=== PATIENT | female | born 1990 | race Caucasian/White ===

== ENCOUNTER → 2017-01-02 | Outpatient (CLI) | payer OTHER ==
--- NOTE | 2017-01-02 10:19 | MR ---
EXAMINATION TYPE: MR brain and iac wo/w con DATE OF EXAM: 01/02/2017 10:07 AM COMPARISON: NONE HISTORY: tinnitus TECHNIQUE: Multiplanar, multiecho imaging of the brain was obtained with and without intravenous adm inistration of 15 mL intravenous MultiHance. FINDINGS: The study is compromised by patient motion artifact. Midline structures are unremarkable. There is a normal craniocervical junction. Echoplanar diffusion imaging is unremarkable. There are normal vascular flow voids. The orbits are unremarkable. High-resolution T2-weighted imaging through the posterior fossa, exquisitely demonstrates the 7/8 ner ve complex without evidence of a CP angle mass lesion or intracanalicular acoustic schwannoma. There are no focal lesions, mass effect or midline shift. I do not see evidence of intracranial blood . Following intravenous administration of gadolinium, I do not see evidence of abnormal enhancement. Sp ecifically, I do not see evidence of an enhancing intracanalicular lesion. IMPRESSION: 1. NO EVIDENCE OF A CP ANGLE MASS LESION OR INTRACANALICULAR ACOUSTIC SCHWANNOMA. 2. NORMAL MRI OF THE BRAIN.
== END | disposition home or self-care (01) ==
LOC: RADMRIMAIN 08:58
PROVIDERS: ATTEND Nurse Practitioner Family
DX: H93.19 Tinnitus, unspecified ear (principal); H90.5 Unspecified sensorineural hearing loss
CPT/HCPCS: 70553; A9577

== ENCOUNTER → 2020-03-12 | Outpatient (CLI) | payer OTHER | END | disposition home or self-care (01) | LOC: LABWHC1 13:05 | PROVIDERS: ATTEND Psychiatry & Neurology Neurology | DX: R42 Dizziness and giddiness (principal); R51 Headache; H53.8 Other visual disturbances | CPT/HCPCS: 36415; 82040; 82042; 82784; 83916 ==

== ENCOUNTER 2020-03-15 11:38 | Inpatient (IN) | payer OTHER ==
[2020-03-15] MEDS ORDERED: ACYCLOVIR SODIUM 700 MG in SODIUM CHLORIDE 0.9% 100 ML IV ONE (13:00)
[2020-03-15] MEDS ORDERED: ACYCLOVIR 400 MG/10 ML CUP PO SCH (13:00)
--- NOTE | 2020-03-15 13:01 | XR ---
EXAMINATION TYPE: XR chest 2V DATE OF EXAM: 03/15/2020 COMPARISON: NONE TECHNIQUE: PA and lateral views submitted. HISTORY: Cough FINDINGS: The lungs are clear and there is no pneumothorax, pleural effusion, or focal pneumonia. Heart size normal. No overt failure. IMPRESSION: 1. No acute process.
[2020-03-15 13:46] LABS: Amorphous Sediment,Urine Rare /hpf; Appearance,Urine Cloudy (Clear); Bilirubin,Urine Negative (Negative); Blood,Urine Large (Negative); Color,Urine Red; Glucose,Urine (UA) Negative (Negative); Ketones,Urine Negative (Negative); Leukocyte Esterase,Urine Moderate (Negative); Nitrite,Urine Negative (Negative); Protein,Urine 1+ (Negative); RBC,Urine >182 /hpf (0-5); Specific Gravity,Urine 1.018 (1.001-1.035); Squamous Epithelial Cell,Urine 6 /hpf (0-4); Urobilinogen,Urine <2.0 mg/dL (<2.0); WBC,Urine 91 /hpf (0-5)
--- NOTE | 2020-03-15 14:15 | ED ---
General Adult HPI - General Chief complaint: Recheck/Abnormal Lab/Rx Stated complaint: sent by Time Seen by Provider: 03/15/20 12:01 Source: patient, RN notes reviewed, old records reviewed Mode of arrival: ambulatory Limitations: no limitations - History of Present Illness Initial comments: 30-year-old female patient past medical history of pseudotumor cerebri presents to ED. Patient reports that for the last 3 months or so she has been having mild waxing and waning headaches. She had a lumbar puncture done by her neurologist 2 days ago and she was called with the results today that she needed to come to the hospital because there is a viral infection. Patient reports that she has had a mild cough for the few weeks which is nonproductive. Denies any acute visual changes. Denies any headache or neck pain at this time. Denies any other complaints. Systemic: Pt denies fatigue, fever/chills, rash. Pt denies weakness, night sweats, weight loss. Neuro: Pt denies syncope or pre-syncope. HEENT: Pt denies ocular discharge or irritation, otalgia, rhinorrhea, pharyngitis or notable lymphadenopathy. Cardiopulmonary: Pt denies chest pain, SOB, heart palpitations, dyspnea on exertion. Abdominal/GI: Pt denies abdominal pain, n/v/d. : Pt denies dysuria, burning w/ urination, frequency/urgency. Denies new onset urinary or bowel incontinence. MSK: Pt denies myalgia, loss of strength or function in extremities. Neuro: Pt denies new onset weakness, paresthesias. - Related Data Allergies Allergy/AdvReac Type Severity Reaction Status Date / Time No Known Allergies Allergy Verified 03/15/20 11:45 Review of Systems ROS Statement: Those systems with pertinent positive or pertinent negative responses have been documented in the HPI. ROS Other: All systems not noted in ROS Statement are negative. Past Medical History Additional Past Medical History / Comment(s): high spinal fluid History of Any Multi-Drug Resistant Organisms: None Reported Past Surgical History: No Surgical Hx Reported Past Psychological History: Anxiety Smoking Status: Current every day smoker Past Alcohol Use History: Occasional Past Drug Use History: Marijuana General Exam - General Exam Comments Initial Comments: Constitutional: NAD, AOX3, Pt has pleasant affect. HEENT: NC/AT, trachea midline, neck supple, no lymphadenopathy. Posterior pharynx non erythematous, without exudates. External ears appear normal, without discharge. Mucous membranes moist. Eyes PERRLA, EOM intact. There is no scleral icterus. No pallor noted. Cardiopulmonary: RRR, no murmurs, rubs or gallops, no JVD noted. Lungs CTAB in anterior and posterior hammer. No peripheral edema. Abdominal exam: Abdomen soft and non-distended. Abdomen non-tender to palpation in all 4 quadrants. Bowel sounds active in LLQ. No hepatosplenomegaly. No ecchymosis Neuro: CN II-XII intact. No nuchal rigidity. No raccon eyes, no gill sign, no hemotympanum. No cervical spinal tenderness. Kernig's and Brudzinski's are negative. MSK: No posterior calf tenderness bilaterally, homans sign negative bilaterally. Posterior tibialis and radial pulse +2 bilaterally. Sensation intact in upper and lower extremities. Full active ROM in upper and lower extremities, 5/5 stregnth. Limitations: no limitations Course Vital Signs 03/15/20 03/15/20 11:40 14:10 Temperature 98.2 F Pulse Rate 90 72 Respiratory 18 16 Rate Blood Pressure 120/68 120/73 O2 Sat by Pulse 98 97 Oximetry Medical Decision Making - Medical Decision Making 30-year-old female patient past medical history of pseudotumor cerebri presents to ED. Patient reports that for the last 3 months or so she has been having mild waxing and waning headaches. She had a lumbar puncture done by her neurologist 2 days ago and she was called with the results today that she needed to come to the hospital because there is a viral infection. Patient reports that she has had a mild cough for the few weeks which is nonproductive. Denies any acute visual changes. Denies any headache or neck pain at this time. Denies any other complaints. Patient vital signs are stable, afebrile. Physical exam did not display acute pathology. Area of LP site was examined there no skin changes. Patient neurologic exam is intact. Meningeal signs are negative. Laboratory investigations were obtained. Leukocytosis of 16 is noted. UA does display blood as patient is on her menses. Chest x-rays but no acute process. 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 Patient was initiated on acyclovir 10 mg/kg 3 times a day. Case was discussed in depth with Dr. Marie discussed case with on-call neurology. We'll be admitted for further evaluation and ID consult. - Lab Data Result diagrams: 03/15/20 13:50 03/15/20 13:50 Lab Results 03/15/20 03/15/20 03/15/20 Range/Units 13:00 13:00 13:50 WBC 16.6 H (3.8-10.6) k/uL RBC 4.65 (3.80-5.40) m/uL Hgb 13.5 (11.4-16.0) gm/dL Hct 42.6 (34.0-46.0) % MCV 91.6 (80.0-100.0) fL MCH 28.9 (25.0-35.0) pg MCHC 31.6 (31.0-37.0) g/dL RDW 13.1 (11.5-15.5) % Plt Count 404 (150-450) k/uL Neutrophils % 73 % Lymphocytes % 19 % Monocytes % 5 % Eosinophils % 2 % Basophils % 0 % Neutrophils # 12.0 H (1.3-7.7) k/uL Lymphocytes # 3.1 (1.0-4.8) k/uL Monocytes # 0.8 (0-1.0) k/uL Eosinophils # 0.3 (0-0.7) k/uL Basophils # 0.1 (0-0.2) k/uL Sodium (137-145) mmol/L Potassium (3.5-5.1) mmol/L Chloride (98-107) mmol/L Carbon Dioxide (22-30) mmol/L Anion Gap mmol/L BUN (7-17) mg/dL Creatinine (0.52-1.04) mg/dL Est GFR (CKD-EPI)AfAm (>60 ml/min/1.73 sqM) Est GFR (CKD-EPI)NonAf (>60 ml/min/1.73 sqM) Glucose (74-99) mg/dL Calcium (8.4-10.2) mg/dL Total Bilirubin (0.2-1.3) mg/dL AST (14-36) U/L ALT (4-34) U/L Alkaline Phosphatase (38-126) U/L Total Protein (6.3-8.2) g/dL Albumin (3.5-5.0) g/dL Urine Color Red Urine Appearance Cloudy H (Clear) Urine pH 7.0 (5.0-8.0) Ur Specific [place] 1.018 (1.001-1.035) Urine Protein 1+ H (Negative) Urine Glucose (UA) Negative (Negative) Urine Ketones Negative (Negative) Urine Blood Large H (Negative) Urine Nitrite Negative (Negative) Urine Bilirubin Negative (Negative) Urine Urobilinogen <2.0 (<2.0) mg/dL Ur Leukocyte Esterase Moderate H (Negative) Urine RBC >182 H (0-5) /hpf Urine WBC 91 H (0-5) /hpf Urine WBC Clumps Moderate H (None) /hpf Ur Squamous Epith Cells 6 H (0-4) /hpf Amorphous Sediment Rare H (None) /hpf Urine HCG, Qual Not Detected (Not Detectd) 03/15/20 Range/Units 13:50 WBC (3.8-10.6) k/uL RBC (3.80-5.40) m/uL Hgb (11.4-16.0) gm/dL Hct (34.0-46.0) % MCV (80.0-100.0) fL MCH (25.0-35.0) pg MCHC (31.0-37.0) g/dL RDW (11.5-15.5) % Plt Count (150-450) k/uL Neutrophils % % Lymphocytes % % Monocytes % % Eosinophils % % Basophils % % Neutrophils # (1.3-7.7) k/uL Lymphocytes # (1.0-4.8) k/uL Monocytes # (0-1.0) k/uL Eosinophils # (0-0.7) k/uL Basophils # (0-0.2) k/uL Sodium 137 (137-145) mmol/L Potassium 4.2 (3.5-5.1) mmol/L Chloride 114 H (98-107) mmol/L Carbon Dioxide 15 L (22-30) mmol/L Anion Gap 8 mmol/L BUN 9 (7-17) mg/dL Creatinine 0.60 (0.52-1.04) mg/dL Est GFR (CKD-EPI)AfAm >90 (>60 ml/min/1.73 sqM) Est GFR (CKD-EPI)NonAf >90 (>60 ml/min/1.73 sqM) Glucose 94 (74-99) mg/dL Calcium 9.0 (8.4-10.2) mg/dL Total Bilirubin 0.6 (0.2-1.3) mg/dL AST 18 (14-36) U/L ALT 10 (4-34) U/L Alkaline Phosphatase 71 (38-126) U/L Total Protein 6.9 (6.3-8.2) g/dL Albumin 4.0 (3.5-5.0) g/dL Urine Color Urine Appearance (Clear) Urine pH (5.0-8.0) Ur Specific [place] (1.001-1.035) Urine Protein (Negative) Urine Glucose (UA) (Negative) Urine Ketones (Negative) Urine Blood (Negative) Urine Nitrite (Negative) Urine Bilirubin (Negative) Urine Urobilinogen (<2.0) mg/dL Ur Leukocyte Esterase (Negative) Urine RBC (0-5) /hpf Urine WBC (0-5) /hpf Urine WBC Clumps (None) /hpf Ur Squamous Epith Cells (0-4) /hpf Amorphous Sediment (None) /hpf Urine HCG, Qual (Not Detectd) Disposition Clinical Impression: Viral meningitis Disposition: ADMITTED IP TO THIS HOSP Condition: Serious Is patient prescribed a controlled substance at d/c from ED?: No Referrals: Ken Freire DO [Primary Care Provider] - 1-2 days
[2020-03-15 14:29] LABS: Basophils # (A) 0.1 k/uL (0-0.2); Basophils % (A) 0 %; Eosinophils # (A) 0.3 k/uL (0-0.7); Eosinophils % (A) 2 %; HCT 42.6 % (34.0-46.0); HGB 13.5 gm/dL (11.4-16.0); Lymphocytes # (A) 3.1 k/uL (1.0-4.8); Lymphocytes % (A) 19 %; MCH 28.9 pg (25.0-35.0); MCHC 31.6 g/dL (31.0-37.0); MCV 91.6 fL (80.0-100.0); Mean Platelet Volume 7.2; Monocytes # (A) 0.8 k/uL (0-1.0); Monocytes % (A) 5 %; Neutrophils % (A) 73 %; Platelet Count 404 k/uL (150-450); RBC 4.65 m/uL (3.80-5.40); RDW 13.1 % (11.5-15.5); WBC 16.6 k/uL (3.8-10.6)
[2020-03-15 14:48] LABS: ALT 10 U/L (4-34); AST 18 U/L (14-36); African American GFR (CKD) >90 (>60 ml/min/1.73 sqM); Alkaline Phosphatase 71 U/L (38-126); Anion Gap 8 mmol/L; Blood Urea Nitrogen 9 mg/dL (7-17); Carbon Dioxide 15 mmol/L (22-30); Chloride 114 mmol/L (98-107); Glucose 94 mg/dL (74-99); Non-African American GFR(CKD) >90 (>60 ml/min/1.73 sqM); Potassium 4.2 mmol/L (3.5-5.1); Sodium 137 mmol/L (137-145); Total Bilirubin 0.6 mg/dL (0.2-1.3); Total Protein 6.9 g/dL (6.3-8.2)
[2020-03-15] MEDS ORDERED: NALOXONE 0.4 MG/ML 1 ML VIAL IV PRN (15:01)
[2020-03-15] MEDS: ACETAMINOPHEN TAB 325 MG TAB PO PRN (20:26)
[2020-03-15] MEDS: guaiFENesin SYRUP 100MG/5ML 200 MG/10 ML CUP PO PRN (21:09)
[2020-03-15] MEDS: ACYCLOVIR SODIUM 700 MG in SODIUM CHLORIDE 0.9% 100 ML IV SCH (21:59)
[2020-03-15] MEDS: ACETAZOLAMIDE 500 MG PO SCH (22:57)
[2020-03-15] MEDS: ALPRAZolam 0.25 MG TAB PO PRN (22:58)
--- NOTE | 2020-03-15 23:27 | P.CNNES ---
History of Present Illness Consult date: 03/15/20 Requesting physician: Nilesh Key Reason for Consult: Viral meningitis History of Present Illness: Patient is a 30-year-old female who is otherwise healthy, admitted to the hospital for abnormal spinal fluid results with positive HSV PCR. Patient states that for the last 4 years she has been having tinnitus involving her right ear. It is more like a whooshing sound with some pressure pain. She has ignored the symptoms. Patient saw an grocery cashier as a routine follow-up in November 2019, who found evidence of pressure behind her optic nerves. He felt it was idiopathic intracranial hypertension. Recommended patient to see a neurologist. Patient states that because of the pandemic, she was not able to see a neurologist for a 3 months. Patient finally saw Dr Montalvo last week, and underwent lumbar puncture on 03/12/2020, in which her opening pressure was 33 cm. Patient was started on Diamox. Patient states that since then her tinnitus in the right ear has improved. Her spinal fluid showed 0 WBC, 1 RBC, normal protein 44 (12-60) and normal synthesis rate and IgG index. Oligoclonal bands are negative. Patient's HSV 1 PCR came back positive. Patient was referred to ER for further evaluation. Patient has been seen by infectious disease, who is recommending repeat lumbar puncture, as there is no evidence of infection except for elevated intracranial pressure. Patient has been started on acyclovir 700 mg IV every 8 hours empirically, pending results of spinal fluid. Patient state s that she does get headaches sometimes when she has not drink enough fluids or after she takes a hot shower, she lays down and sleep it off. Otherwise she does not have chronic headaches except the symptoms in the right ear as mentioned. Patient states that overall she has not been feeling well for quite some time but for last 1 week has been feeling some flulike symptoms. Patient's blood test shows WBC 16.6, hemoglobin 13.5, platelets 404. Neutrophils are elevated at 12.0. Electrolytes are normal except chloride 114. Liver functions normal. Renal functions normal. CRP is 27.6. UA shows cloudy urine, 1+ protein. Patient had an MRI of the brain performed on 12/13/2019, and MRA of the brain performed 03/11/2020 at her neurologist office. Review of Systems As mentioned above in detail. All other review of systems completely unremarkable. Denies any fever or chills. Past Medical History Additional Past Medical History / Comment(s): high spinal fluid. SINUSITIS. BORN PREMATURE 3 MONTHS History of Any Multi-Drug Resistant Organisms: None Reported Past Surgical History: No Surgical Hx Reported Additional Past Surgical History / Comment(s): LUMBAR PUNCTURE TEUSDAY Past Anesthesia/Blood Transfusion Reactions: No Reported Reaction Past Psychological History: Anxiety Smoking Status: Current every day smoker Past Alcohol Use History: Occasional Past Drug Use History: Marijuana - Past Family History Mother History Unknown: Yes Medications and Allergies Home Medications Medication Instructions Recorded Confirmed Type ALPRAZolam [Xanax] 0.25 mg PO DAILY PRN 03/15/20 03/15/20 History Phenylephrine/Dm/Acetaminop/GG 15 ml PO DAILY PRN 03/15/20 03/15/20 History [Vicks Dayquil Severe Cold-Flu] acetaZOLAMIDE [acetaZOLAMIDE ER] 500 mg PO BID 03/15/20 03/15/20 History Allergies Allergy/AdvReac Type Severity Reaction Status Date / Time No Known Allergies Allergy Verified 03/15/20 15:43 Physical Examination - Vital Signs Vital Signs: Vital Signs Temp Pulse Pulse Resp BP BP BP 03/15/20 19:37 99.3 F 85 18 132/59 03/15/20 15:45 98.3 F 69 16 122/82 03/15/20 15:29 18 03/15/20 15:25 97.0 F L 18 03/15/20 14:10 72 16 120/73 03/15/20 11:40 98.2 F 90 18 120/68 Pulse Ox 03/15/20 19:37 98 03/15/20 15:45 97 03/15/20 15:29 03/15/20 15:25 03/15/20 14:10 97 03/15/20 11:40 98 Intake and Output 03/15/20 03/15/20 03/16/20 14:59 22:59 06:59 Intake Total 500 Balance 500 Intake: Oral 500 Other: # Voids 2 Weight 69.4 kg 69.4 kg On examination patient is a young female, in no acute distress. Patient is alert awake oriented to time place and person. Speech and language functions are normal. Attention concentration fund of knowledge is adequate. On cranial exam showed pupils are round and reactive to light, visual hammer are full, extraocular muscles are intact. Face is symmetric, tongue protrudes the midline. Palatal elevation and sensation normal. Hearing and shoulder shrug normal. On muscle strength testing there is no pronator drift and the strength is normal in arms and legs distally and proximally. Reflexes are plus and plantars downgoing. Sensory touch is equal. No ataxia for pclhya-wr-nrsy te sting. Tone and bulk of muscles normal. Gait normal. No bruit or murmur, peripheral pulses present. Results - Laboratory Findings CBC and BMP: 03/15/20 13:50 03/15/20 13:50 Abnormal Lab Findings: Abnormal Labs 03/15/20 03/15/20 03/15/20 13:00 13:50 13:50 WBC 16.6 H Neutrophils # 12.0 H Chloride 114 H Carbon Dioxide 15 L C-Reactive Protein Urine Appearance Cloudy H Urine Protein 1+ H Urine Blood Large H Ur Leukocyte Esterase Moderate H Urine RBC >182 H Urine WBC 91 H Urine WBC Clumps Moderate H Ur Squamous Epith Cells 6 H Amorphous Sediment Rare H 03/15/20 13:50 WBC Neutrophils # Chloride Carbon Dioxide C-Reactive Protein 27.6 H Urine Appearance Urine Protein Urine Blood Ur Leukocyte Esterase Urine RBC Urine WBC Urine WBC Clumps Ur Squamous Epith Cells Amorphous Sediment Assessment and Plan Assessment: * 30-year-old female who had lumbar puncture performed for incidental finding of papilledema, found to have positive HSV-1 PCR in the spinal fluid. The opening pressure was elevated 33 cm. There were no white cells, or red cells, and total CSF proteins also normal. 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 Patient claims she has been feeling some for lack symptoms in the past 1 week. Plan: * Patient has been seen by infectious disease. Patient has been started on IV acyclovir. * Patient will undergo repeat lumbar puncture to evaluate for spinal fluid proteins, cell count, glucose and HSV-1, HSV 2 PCR. * Neurology service not available on the weekend. Dr. Moe will start neurology service on Wednesday. * Continue Diamox for now.
[2020-03-16 00:53] LABS: Glucose,CSF 56 mg/dL (40-70); Total Protein,CSF 43 mg/dL (12-60)
[2020-03-16 01:36] LABS: Appearance,CSF Clear; CSF Tube Number 4; Nucleated Cells, CSF 2 u/L (0-5); Red Blood Cell,CSF 1 u/L (0-10)
[2020-03-16 02:16] LABS: HSV I IgG Interp NEGATIVE (NEGATIVE); HSV II IgG Interp NEGATIVE (NEGATIVE)
[2020-03-16] MEDS: ACYCLOVIR SODIUM 700 MG in SODIUM CHLORIDE 0.9% 100 ML IV SCH ×2 (05:44→15:33)
[2020-03-16] MEDS: guaiFENesin SYRUP 100MG/5ML 200 MG/10 ML CUP PO PRN ×3 (05:45→18:47)
[2020-03-16] MEDS: ACETAMINOPHEN TAB 325 MG TAB PO PRN ×4 (05:45→23:02)
[2020-03-16 06:40] LABS: Basophils % (A) 0 %; Eosinophils # (A) 0.3 k/uL (0-0.7); Eosinophils % (A) 3 %; HCT 40.8 % (34.0-46.0); HGB 13.3 gm/dL (11.4-16.0); Lymphocytes # (A) 2.9 k/uL (1.0-4.8); Lymphocytes % (A) 29 %; MCH 30.4 pg (25.0-35.0); MCHC 32.6 g/dL (31.0-37.0); MCV 93.1 fL (80.0-100.0); Mean Platelet Volume 7.1; Monocytes # (A) 0.5 k/uL (0-1.0); Monocytes % (A) 5 %; Neutrophils # (A) 6.1 k/uL (1.3-7.7); Neutrophils % (A) 61 %; Platelet Count 380 k/uL (150-450); RBC 4.38 m/uL (3.80-5.40); RDW 13.4 % (11.5-15.5)
--- NOTE | 2020-03-16 06:41 | HP ---
HISTORY AND PHYSICAL CHIEF COMPLAINTS: Abnormal lumbar puncture and headaches and pseudotumor cerebri. HISTORY OF PRESENT ILLNESS: This 30-year-old woman with a past medical history of multiple medical issues including tinnitus, history of eye difficulties, possibly pseudotumor cerebri, was being followed by Dr. Freire in the outpatient setting. The patient is not feeling well over the past several days. Patient had headache, weakness, and the patient also had a lumbar puncture done by Dr. 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 Otherwise, CSF showed normal albumin and normal cells. The patient was also seen by the neurologist, Dr. Wilhelm who recommended repeat lumbar puncture and continued monitoring. Diamox was initiated. The patient had an incidental finding of papilledema as well. There is no history of fever, rigors. No headache, loss of consciousness, seizures. PAST MEDICAL HISTORY: Pseudotumor cerebri, history of papilledema, history of premature , history of anxiety. MEDICATIONS PRIOR TO ADMISSION: Include Vicks DayQuil, Diamox 500 mg p.o. b.i.d., Xanax 0.5 daily p.r.n. ALLERGIES: None. FAMILY HISTORY: No history of heart attacks or strokes in the family. SOCIAL HISTORY: History of smoking, history of THC. REVIEW OF SYSTEMS: ENT As mentioned earlier. CARDIOVASCULAR No angina or palpitations. RESPIRATORY No cough, no hemoptysis. GI No nausea, vomiting, or diarrhea. No dysuria or hematuria. NERVOUS No numbness or weakness. ALLERGY/IMMUNOLOGY No asthma or hayfever. MUSCULOSKELETAL As mentioned earlier. HEMATOLOGY/ONCOLOGY Negative. ENDOCRINE No history of diabetes or hypothyroidism. CONSTITUTIONAL As mentioned earlier. DERMATOLOGY As mentioned earlier. RHEUMATOLOGY As mentioned earlier. PSYCHIATRY As mentioned earlier. PHYSICAL EXAMINATION: Alert and oriented x3. Pulse is 85, blood pressure 130/59, respiration 18, temperature 99.3, pulse ox 98% on room air. HEENT: Conjunctivae normal. Oral mucosa moist. NECK: No jugular venous distention. No lymph node enlargement. CARDIOVASCULAR: S1, S2. RESPIRATORY: Diminished breath sounds at the bases. No rhonchi, no crackles. ABDOMEN: Soft, nontender. No mass palpable. LEGS: No edema, no swelling. NERVOUS SYSTEM: Higher functions mentioned earlier. Moves all four limbs. No focal deficits. LYMPHATICS: No lymph node in neck or axilla. SKIN: No rash. JOINTS: No active deforming arthropathy. LABS: At this time shows the HSV 1 DNA PCR is positive in the previous lumbar puncture done on 03/12. Other labs are WBC 16.2, hemoglobin 13.4, sodium 137, potassium 4.2, CO2 is 15. UA had RBCs. ASSESSMENT: 1. Headache and weakness for evaluation, rule out HSV 1 encephalitis. 2. History of pseudotumor cerebri. 3. History of papilledema. 4. Increased WBC. 5. Decreased CO2. 6. History of sinusitis. 7. History of premature . 8. History of anxiety. 9. Continued ongoing nicotine dependence. 10.History of THC. RECOMMENDATIONS AND DISCUSSION: In this 30-year-old woman who presented with multiple complex medical issues, I would recommend to continue current management and symptomatic treatment. Otherwise, continue with Diamox. Repeat lumbar puncture and studies. Infectious disease evaluation. Otherwise prognosis guarded because of multiple complex medical issues. Further recommendations to follow. The CSF values noted and neurology evaluation appreciated. Guarded prognosis. MMODL / IJN: [id number] /
--- NOTE | 2020-03-16 07:21 | P.PCN ---
Date of Procedure: 03/16/20 Procedure(s) Performed: Preoperative diagnosis: Viral meningitis Post operative diagnoses: Viral meningitis Procedure= lumbar puncture Anesthesia local infiltration with lidocaine 1% 2 mL. Condition: stable Complication: none. Description of the procedure procedure risk and benefits discussed with the patient , consent signed. Patient and the procedure area placed in sitting position , back prepped with chlorhexidine 3 times been local infiltration of the skin and subcutaneous tissue with lidocaine 1% 2 mL for skin and subcu interstitial infiltrations at L4 5 levels then 22-gauge Quincke-type needle advanced slowly at L4- 5 interlaminar space there was positive cerebrospinal fluid which was clear, no heme, no paresthesia ,total of 8 ML of clear cerebrospinal fluid collected in 4 different tubes 2 mL in each, then the needle removed and a Band-Aid applied and patient tolerated the procedure well without any complications.
[2020-03-16 07:34] LABS: African American GFR (CKD) >90 (>60 ml/min/1.73 sqM); Anion Gap 5 mmol/L; Blood Urea Nitrogen 8 mg/dL (7-17); Calcium 8.6 mg/dL (8.4-10.2); Carbon Dioxide 15 mmol/L (22-30); Chloride 117 mmol/L (98-107); Glucose 100 mg/dL (74-99); Non-African American GFR(CKD) >90 (>60 ml/min/1.73 sqM); Sodium 137 mmol/L (137-145)
--- NOTE | 2020-03-16 09:50 | P.CONS ---
History of Present Illness - Reason for Consult Consult date: 03/15/20 abnormal CSF Requesting physician: Laury Cardona - Chief Complaint headache and was told to go to ER for abnormal CSF - History of Present Illness Patient is a 30-year-old female with a past medical he significant for pseudotumor cerebri in this patient who did have work-up done in the outpatient setting including a lumbar puncture the CSF finding came back positive for HSV DNA by PCR subsequently the patient has been sent to the [facility] ER for further management the patient has been complaining of some headache more of a dull aching pain but not persistent patient mention she did have occasional low- grade fever ranging between 99 200 F patient denies having photophobia no nausea no vomiting no chest pain shortness of breath or cough no abdominal pain or any diarrhea patient on arrival to the ER has been afebrile he did have elevated white count 16,000 though urine has been positive however lipid denies significant urinary symptoms of any burning or frequency this patient care has been discussed in detail with me by the ER physician in view of the positive finding of HSV DNA by PCR in the CSF which is very sensitive for HSV encephaliti s patient has been admitted to hospital however her other CSF biochemical marker are not pointing towards inflammation as we will have to repeat the CSF to confirm the findings. Review of Systems Positive point has been mentioned in HPI rest of the systems are negative Past Medical History Additional Past Medical History / Comment(s): high spinal fluid. SINUSITIS. BORN PREMATURE 3 MONTHS History of Any Multi-Drug Resistant Organisms: None Reported Past Surgical History: No Surgical Hx Reported Additional Past Surgical History / Comment(s): LUMBAR PUNCTURE TEUSDAY Past Anesthesia/Blood Transfusion Reactions: No Reported Reaction Past Psychological History: Anxiety Smoking Status: Current every day smoker Past Alcohol Use History: Occasional Past Drug Use History: Marijuana - Past Family History Mother History Unknown: Yes Medications and Allergies Home Medications Medication Instructions Recorded Confirmed Type ALPRAZolam [Xanax] 0.25 mg PO DAILY PRN 03/15/20 03/15/20 History Phenylephrine/Dm/Acetaminop/GG 15 ml PO DAILY PRN 03/15/20 03/15/20 History [Vicks Dayquil Severe Cold-Flu] acetaZOLAMIDE [acetaZOLAMIDE ER] 500 mg PO BID 03/15/20 03/15/20 History Allergies Allergy/AdvReac Type Severity Reaction Status Date / Time No Known Allergies Allergy Verified 03/15/20 15:43 Physical Exam Vitals: Vital Signs Temp Pulse Pulse Resp BP BP BP 03/15/20 19:37 99.3 F 85 18 132/59 03/15/20 15:45 98.3 F 69 16 122/82 03/15/20 15:29 18 03/15/20 15:25 97.0 F L 18 03/15/20 14:10 72 16 120/73 03/15/20 11:40 98.2 F 90 18 120/68 Pulse Ox 03/15/20 19:37 98 03/15/20 15:45 97 03/15/20 15:29 03/15/20 15:25 03/15/20 14:10 97 03/15/20 11:40 98 Intake and Output 03/15/20 03/15/20 03/16/20 14:59 22:59 06:59 Intake Total 500 Balance 500 Intake: Oral 500 Other: # Voids 2 Weight 69.4 kg 69.4 kg GENERAL DESCRIPTION: Middle-aged female lying in bed, no distress. No tachypnea or accessory muscle of respiration use. HEENT: Shows Pallor , no scleral icterus. Oral mucous membrane is dry. NECK: Trachea central, no thyromegaly. LUNGS: Unlabored breathing. Clear to auscultation anteriorly. No wheeze or crackle. HEART: S1, S2, regular rate and rhythm. ABDOMEN: Soft, no tenderness , guarding or rigidity EXTREMITIES: No edema of feet. SKIN: No rash, no masses palpable. NEUROLOGICAL: The patient is awake, alert, oriented x3, mood and affect normal Results CBC & Chem 7: 03/16/20 06:28 03/16/20 06:28 Labs: Abnormal Lab Results - Last 24 Hours (Table) 03/15/20 03/15/20 03/15/20 Range/Units 13:00 13:50 13:50 WBC 16.6 H (3.8-10.6) k/uL Neutrophils # 12.0 H (1.3-7.7) k/uL Chloride 114 H (98-107) mmol/L Carbon Dioxide 15 L (22-30) mmol/L C-Reactive Protein (<10.0) mg/L Urine Appearance Cloudy H (Clear) Urine Protein 1+ H (Negative) Urine Blood Large H (Negative) Ur Leukocyte Esterase Moderate H (Negative) Urine RBC >182 H (0-5) /hpf Urine WBC 91 H (0-5) /hpf Urine WBC Clumps Moderate H (None) /hpf Ur Squamous Epith Cells 6 H (0-4) /hpf Amorphous Sediment Rare H (None) /hpf // Range/Units 13:50 WBC (3.8-10.6) k/uL Neutrophils # (1.3-7.7) k/uL Chloride (98-107) mmol/L Carbon Dioxide (22-30) mmol/L C-Reactive Protein 27.6 H (<10.0) mg/L Urine Appearance (Clear) Urine Protein (Negative) Urine Blood (Negative) Ur Leukocyte Esterase (Negative) Urine RBC (0-5) /hpf Urine WBC (0-5) /hpf Urine WBC Clumps (None) /hpf Ur Squamous Epith Cells (0-4) /hpf Amorphous Sediment (None) /hpf Assessment and Plan Assessment: 1-patient with abnormal CSF findings with HSV DNA by PCR positive however the patient do not have significant leukocytosis in the CSF and protein is normal these 2 findings would go against CSF inflammation however at the same time HSV DNA by PCR resulted sensitivities for HSV encephalitis cannot disregarded finding either. 2-positive UA but no symptom likely asymptomatic bacteriuria (1) PCR DNA positive for HSV1 Current Visit: Yes Status: Acute Code(s): Z11.59 - ENCOUNTER FOR SCREENING FOR OTHER VIRAL DISEASES; B00.9 - HERPESVIRAL INFECTION, UNSPECIFIED SNOMED Code(s): 895069866 Plan: 1-consult anesthesia for LP fluid should be sent for cell count differential glucose protein and HSV DNA by PCR 2-acyclovir 10 mg/kg every 8hr while waiting for the repeat CSF 3-we will also check HSV 1 and 2 serology We will follow on clinical condition and cultures to further adjust medication if needed Thank you for this consultation we will follow the patient along with you Time with Patient: Greater than 30
[2020-03-16] MEDS: NICOTINE 21MG/24HR PATCH TRANSDERM SCH (10:45)
[2020-03-16] MEDS: ACETAZOLAMIDE 500 MG PO SCH ×2 (10:46→20:32)
[2020-03-16] MEDS: ALPRAZolam 0.25 MG TAB PO PRN (17:04)
--- NOTE | 2020-03-16 17:17 | PN ---
PROGRESS NOTE DATE OF SERVICE: 03/16/2020 This 30-year-old woman is admitted with abnormal lumbar puncture and the antibody in the CSF, was started on acyclovir. Patient was developing blister-like lesions. Patient had features of UTI also. Infectious Disease following the patient closely. Repeat lumbar puncture has been done at this time. The patient also had pseudotumor cerebri as well. The patient is followed by Neurology, Dr. Cardona also. The patient developed blister-like lesions in the injection sites. PAST MEDICAL HISTORY: Reviewed. REVIEW OF SYSTEMS: CARDIOVASCULAR: No angina. RESPIRATION as mentioned earlier. GI: As mentioned earlier. Nervous system: As mentioned earlier. CURRENT MEDICATIONS: Reviewed and include: 1. Tylenol p.r.n. 2. Acyclovir. 3. Xanax. 4. Robitussin. 5. Narcan. 6. Habitrol. PHYSICAL EXAM: Patient is alert, oriented x3. Pulse 72. Blood pressure 105/60, respiration 20, temperature 98.2, pulse ox 98% on room air. HEENT is conjunctivae normal. NECK: No JVD. CARDIOVASCULAR: S1, S2 muffled. RESPIRATIONS: Breath sounds diminished in the bases. Scattered rhonchi and crackles. ABDOMEN: Soft, nontender. No mass palpable. LEGS are no edema. No focal deficits. LABS: WBC 10, sodium 137, potassium 4, CO2 is 15. ASSESSMENT: 1. Headache and weakness for evaluation, rule out HSV 1 encephalitis. 2. Pseudotumor cerebri, possibly. 3. History of papilledema. 4. Decreased CO2 with possible metabolic acidosis caused by Diamox. 5. Increased WBC. 6. History of sinusitis. 7. History of premature . 8. History of anxiety. 9. Continued ongoing nicotine dependence. 10.History of THC. 11.Urinary tract infection. RECOMMENDATIONS AND DISCUSSION: This 30-year-old woman who presented with multiple complex medical issues, we will monitor the patient closely, continue the current medications, and symptomatic treatment. The patient probably developed allergy to Acyclovir . I recommend to hold the Acyclovir at this time and await the spinal fluid reports. Otherwise also recommend urine culture and also initiate Rocephin for the presumed UTI. Otherwise, prognosis guarded because of the multiple complex medical issues. White count is improving. Further recommendations to follow. MMODL / IJN: [id number] / CHECO
--- NOTE | 2020-03-17 00:36 | PN ---
PROGRESS NOTE DATE OF SERVICE: 03/16/2020 REASON FOR FOLLOWUP: Abnormal CSF with HSV DNA positive. INTERVAL HISTORY: The patient is currently afebrile. The patient denies having any headache. No chest pain or shortness of breath. She did have some cough but no sputum. No vomiting or any diarrhea. PHYSICAL EXAMINATION: Blood pressure 115/72 with a pulse of 90, temperature 98.1, she is 99% on room air. General description is a middle-aged female lying in bed in no distress. Respiratory system: Unlabored breathing, clear to auscultation anteriorly. Heart S1, S2. Regular rate and rhythm. Abdomen soft, no tenderness. LABS: Hemoglobin 13.8, white count 14646, BUN of 8, creatinine 0.55. The patient did have CSF this morning which shows only 2 nucleated cell glucose and protein normal. The patient did have HSV 1 and 2 IgG negative. DIAGNOSTIC IMPRESSION AND PLAN: Patient with outpatient LP with CSF did shows HSV DNA positive with question of contamination or lab error as the patient clinically not behaving as herpes encephalitis, no fever no white count. Repeat herpes is clear and the patient to have negative serology for HSV 1 and 2. We will wait for the HSV DNA on this CSF today. If negative recommend discontinue the acyclovir. Continue supportive care. MMODL / IJN: [id number] /
[2020-03-17] MEDS: guaiFENesin SYRUP 100MG/5ML 200 MG/10 ML CUP PO PRN ×4 (03:23→21:39)
[2020-03-17] MEDS: ACETAMINOPHEN TAB 325 MG TAB PO PRN ×3 (07:09→21:01)
[2020-03-17] MEDS: ACETAZOLAMIDE 500 MG PO SCH ×3 (07:17→20:24)
[2020-03-17] MEDS: ALPRAZolam 0.25 MG TAB PO PRN ×2 (07:38→13:55)
[2020-03-17 07:44] LABS: Basophils % (A) 0 %; Eosinophils # (A) 0.3 k/uL (0-0.7); Eosinophils % (A) 2 %; HCT 39.9 % (34.0-46.0); HGB 13.5 gm/dL (11.4-16.0); Lymphocytes # (A) 2.6 k/uL (1.0-4.8); Lymphocytes % (A) 16 %; MCHC 33.8 g/dL (31.0-37.0); MCV 91.8 fL (80.0-100.0); Monocytes # (A) 0.8 k/uL (0-1.0); Monocytes % (A) 5 %; Neutrophils # (A) 12.1 k/uL (1.3-7.7); Neutrophils % (A) 75 %; Platelet Count 412 k/uL (150-450); RBC 4.35 m/uL (3.80-5.40); RDW 13.2 % (11.5-15.5); WBC 16.1 k/uL (3.8-10.6)
[2020-03-17 07:52] LABS: African American GFR (CKD) >90 (>60 ml/min/1.73 sqM); Anion Gap 9 mmol/L; Blood Urea Nitrogen 9 mg/dL (7-17); Calcium 9.1 mg/dL (8.4-10.2); Carbon Dioxide 14 mmol/L (22-30); Chloride 115 mmol/L (98-107); Glucose 106 mg/dL (74-99); Non-African American GFR(CKD) >90 (>60 ml/min/1.73 sqM); Potassium 3.9 mmol/L (3.5-5.1); Sodium 138 mmol/L (137-145)
[2020-03-17] MEDS: NICOTINE 21MG/24HR PATCH TRANSDERM SCH (08:08)
[2020-03-17 14:03] LABS: ABG Base Excess -13.1 mmol/L; ABG HCO3 13 mmol/L (21-25); ABG Oxygen Saturation 97.4 % (94-97); ABG PCO2 27 mmHg (35-45); ABG PH 7.31 (7.35-7.45); ABG PO2 97 mmHg (83-108); ABG TCO2 14 mmol/L (19-24); Allen Test Performed? Yes
--- NOTE | 2020-03-17 14:10 | XR ---
EXAMINATION TYPE: XR chest 2V DATE OF EXAM ORDERED: 03/17/2020 HISTORY: cough. REFERENCE: None. FINDINGS: The lungs are clear. Pleural spaces are clear. Heart size is normal. IMPRESSION: NORMAL CHEST.
[2020-03-17] MEDS: BENZOCAINE/MENTHOL LOZENG 1 EACH LOZENGE MUCOUS MEM SCH ×3 (15:13→20:55)
--- NOTE | 2020-03-17 15:44 | P.NPCON ---
History of Present Illness - Reason for Consult Consult date: 03/17/20 metabolic acidosis - Chief Complaint Headache, pseudotumor cerebri - History of Present Illness This is a 30-year-old female seen in consultation because of non-gap acidosis secondary to Diamox that was prescribed to her about 3 days ago for her pseudotumor cerebri with peripheral edema and tinnitus in the right ear rather than headache. The ear symptoms have been going on for 4 years supposedly. She was seen by underwear finisher and subsequently referred to neurologist more recently and has had an MRI and MRA done which supposedly were normal. Subsequently had LP done which showed high CSF pressures of 33 cm opening pressure on 03/12/2020. Her spinal fluid showed 0 WBCs and RBCs protein was 44 normal being 12-60 She was started on Diamox 500 twice a day. She is complaining of cough for several days they have predated the Diamox but she is not sure. After being admitted to the hospital because of the HSV being positive, She was started on acyclovir here but because of rash and blebs it has been discontinued. Her repeat CSF has been obtained opening pressure is not available Again the RBCs is 1 WBCs 2 and total protein is 43 and glucose is 56 Past Medical History Additional Past Medical History / Comment(s): high spinal fluid. SINUSITIS. BORN PREMATURE 3 MONTHS History of Any Multi-Drug Resistant Organisms: None Reported Past Surgical History: No Surgical Hx Reported Additional Past Surgical History / Comment(s): LUMBAR PUNCTURE TEUSDAY Past Anesthesia/Blood Transfusion Reactions: No Reported Reaction Past Psychological History: Anxiety Smoking Status: Current every day smoker Past Alcohol Use History: Occasional Past Drug Use History: Marijuana - Past Family History Mother History Unknown: Yes Medications and Allergies Home Medications Medication Instructions Recorded Confirmed Type ALPRAZolam [Xanax] 0.25 mg PO DAILY PRN 03/15/20 03/15/20 History Phenylephrine/Dm/Acetaminop/GG 15 ml PO DAILY PRN 03/15/20 03/15/20 History [Vicks Dayquil Severe Cold-Flu] acetaZOLAMIDE [acetaZOLAMIDE ER] 500 mg PO BID 03/15/20 03/15/20 History Allergies Allergy/AdvReac Type Severity Reaction Status Date / Time No Known Allergies Allergy Verified 03/15/20 15:43 Physical Exam Vitals: Vital Signs Temp Pulse Resp BP BP Pulse Ox 03/17/20 13:00 98.3 F 82 22 91/55 96 03/17/20 07:53 20 03/17/20 07:00 98.5 F 79 22 104/68 95 03/17/20 03:37 97.9 F 88 18 106/63 96 03/16/20 23:57 98 18 03/16/20 20:58 98 18 03/16/20 20:43 99.1 F 98 18 116/72 99 03/16/20 16:07 98.2 F 84 20 113/63 97 Intake and Output 03/17/20 03/17/20 03/17/20 06:59 14:59 22:59 Intake Total 600 Balance 600 Intake: Oral 600 Other: Voiding Method Toilet # Voids 1 2 On examination awake alert oriented comfortable HEENT exam no JVP neck is supple no facial asymmetry Oral cavity unremarkable. She is complaining of some irritation in her throat and a chronic cough. Lungs are clear to auscultation good air entry bilaterally Heart sounds are unremarkable for any murmur rub gallop Abdomen soft nontender no organomegaly ascites masses Extremity exam was no edema Neurologically awake alert oriented Results - Lab Results Most recent lab results ABG pH 7.31 (7.35-7.45) L 03/17/20 13:36 ABG pCO2 27 mmHg (35-45) L 03/17/20 13:36 ABG pO2 97 mmHg (83-108) 03/17/20 13:36 ABG HCO3 13 mmol/L (21-25) L 03/17/20 13:36 ABG O2 Saturation 97.4 % (94-97) H 03/17/20 13:36 Calcium 9.1 mg/dL (8.4-10.2) 03/17/20 07:27 03/17/20 07:27 03/17/20 07:27 Assessment and Plan Assessment: Impression 1. Non-gap acidosis with bicarb of 14 and anion gap of 9 secondary to Diamox. 2. Pseudotumor cerebri with papilledema. Also with tinnitus. Started on Diamox about 2 or 3 days ago at 500 twice a day. Ear symptoms are much better 3. HSV positive PCR in CSF done on 03/12/2020 but no white count and no proteins was low glucose to suggest any active infection. Attempted acyclovir therapy voided because of side effects with rash. 4. Chronic smoker Recommendation 1. We'll starts oral bicarbonate and see if improvement in her acidosis will make her feel any better. Alternatively we can change Diamox to other substitutes if she continues to have side effects that are difficult to explain. This includes cough and throat irritation. She does not have any usual side effects to Diamox which include fatigue and malaise this change anorexia nausea vomiting paresthesias diarrhea tinnitus rash etc. I explained to her that long- term acidosis could cause increased respiratory rate, osteoporosis, fatigue and tiredness. She wants to continue the Diamox because of the improvement in her ear symptoms. Will follow-up.
[2020-03-17] MEDS ORDERED: SODIUM CHLORIDE 0.9% 1,000 ML IV SCH (16:00)
[2020-03-17] MEDS: SODIUM BICARBONATE TAB 650 MG TAB PO SCH (17:03)
[2020-03-17] MEDS: diphenhydrAMINE 25 MG CAP PO PRN (20:59)
--- NOTE | 2020-03-17 23:24 | PN ---
PROGRESS NOTE DATE OF SERVICE: 03/17/2020 This 30-year-old woman who was admitted with headache and weakness, was being evaluated for an HSV 1 encephalitis. Initial antibody testing and CSF was positive. The repeat lumbar puncture was done and final reports are pending at this time. Serum HSV was negative. Patient also started on as indicated, some kind of allergy. The patient also history of pseudotumor cerebri and as well as papilledema also. The patient also had significant hacking cough also according to the staff. The COVID-19 was negative. The chest x-ray which was done today and which I reviewed personally by me showed no acute abnormality. The patient also had metabolic acidosis, possibly secondary to Diamox . PAST MEDICAL HISTORY: Reviewed. REVIEW OF SYSTEMS: CARDIOVASCULAR SYSTEM: No angina. RESPIRATORY SYSTEM: As mentioned earlier. GI: As mentioned earlier. NERVOUS SYSTEM: As mentioned earlier. CURRENT MEDICATIONS: Current medications are reviewed include: 1. Tylenol p.r.n. 2. Xanax 0.25 t.i.d. 3. Benzocaine q.4 p.r.n. 4. Rocephin 2 grams. 5. Robitussin 200 mg q.6. 6. Narcan 0.2. 7. Habitrol 21. 8. Sodium bicarb. PHYSICAL EXAMINATION: The patient is alert and oriented x3. Pulse 83. Blood pressure is 100/58, respiration 24, temperature 97.3, pulse ox 96% on room air. HEENT: Conjunctivae normal. NECK: No jugular venous distention. CARDIOVASCULAR: S1, S2 muffled RESPIRATORY: Breath sounds diminished at the bases. No rhonchi, no crackles. ABDOMEN: Soft, nontender. LEGS: No edema. No swelling. NERVOUS SYSTEM: No focal deficits. LABS: WBC 16.1, hemoglobin 13.5. ABGs noted, pH of 7.31. CO2 is 14. ASSESSMENT: 1. Headache and weakness for evaluation, rule out HSV 1 encephalitis. 2. Pseudotumor cerebri, possibly. 3. Metabolic acidosis, acute possibly secondary from Diamox. 4. History of papilledema. 5. Increased WBC. 6. Incessant intractable cough for evaluation. 7. History of sinusitis. 8. History of premature . 9. History of anxiety. 10.Continued ongoing nicotine dependence. 11.History of THC. 12.Urinary tract infection. RECOMMENDATIONS AND DISCUSSION: Recommend to continue current medications. Continue symptomatic treatment. Antiviral drugs on hold for now. We will await further HSV 1 reports. Otherwise discussed with Dr. Doss who will be evaluating the metabolic acidosis, possibly Diamox. Otherwise, we will continue to monitor. Continue the rest of medications. I would also recommend droplet isolation of because incessant cough, fever and the COVID-19 test is negative. Overall prognosis guarded. Discussed with the patient and understands. Further recommendations to follow. PAPITOL / NIDHIN: [id number] / MTDD
[2020-03-18] MEDS: BENZOCAINE/MENTHOL LOZENG 1 EACH LOZENGE MUCOUS MEM SCH ×5 (01:21→15:41)
[2020-03-18] MEDS: guaiFENesin SYRUP 100MG/5ML 200 MG/10 ML CUP PO PRN ×3 (03:47→15:41)
[2020-03-18] MEDS: diphenhydrAMINE 25 MG CAP PO PRN ×3 (03:48→15:41)
[2020-03-18] MEDS: ACETAMINOPHEN TAB 325 MG TAB PO PRN (03:50)
--- NOTE | 2020-03-18 05:29 | PN ---
PROGRESS NOTE DATE OF SERVICE: 03/17/2020 REASON FOR FOLLOW UP: 1. Abnormal CSF. 2. Cough. INTERVAL HISTORY: The patient is currently afebrile. The patient is also complaining of sore throat and a dry irritating cough. No chest pain or shortness of breath. No abdominal pain. No headache. No diarrhea. PHYSICAL EXAMINATION: Blood pressure is 114/60 with a pulse of 98, temperature 98.1. She is 97% on room air. General description is a middle-aged female up in the room in no distress. RESPIRATORY SYSTEM: Unlabored breathing. Coarse breath sounds at the base. No wheeze. HEART: S1, S2. Regular rate and rhythm. ABDOMEN: Soft, no tenderness. LABS: Creatinine 0.52, hemoglobin 13.5, white count 16.1. Urine was positive, culture negative. Chest x-ray repeat today was negative. DIAGNOSTIC IMPRESSION AND PLAN: 1. Patient with abnormal CSF in outpatient setting were positive for HSV DNA, questionably lab error or contamination as she the repeat LP is relatively negative the patient's HSV 1 and 2 serology is negative as well. Acyclovir was discontinue. 2. Patient with a cough. Chest x-ray has been negative. Will add Cepacol lozenges, on Rocephin and monitor clinical course closely. MMODL / IJN: [id number] /
[2020-03-18 05:42] LABS: Basophils % (A) 0 %; Eosinophils # (A) 0.4 k/uL (0-0.7); Eosinophils % (A) 4 %; HCT 40.7 % (34.0-46.0); HGB 12.7 gm/dL (11.4-16.0); Lymphocytes # (A) 2.5 k/uL (1.0-4.8); Lymphocytes % (A) 22 %; MCH 28.9 pg (25.0-35.0); MCHC 31.3 g/dL (31.0-37.0); MCV 92.3 fL (80.0-100.0); Mean Platelet Volume 7.1; Monocytes # (A) 0.7 k/uL (0-1.0); Monocytes % (A) 6 %; Neutrophils # (A) 7.5 k/uL (1.3-7.7); Neutrophils % (A) 66 %; Platelet Count 373 k/uL (150-450); RDW 13.2 % (11.5-15.5); WBC 11.4 k/uL (3.8-10.6)
[2020-03-18 05:51] LABS: African American GFR (CKD) >90 (>60 ml/min/1.73 sqM); Anion Gap 9 mmol/L; Blood Urea Nitrogen 9 mg/dL (7-17); Calcium 9.2 mg/dL (8.4-10.2); Carbon Dioxide 13 mmol/L (22-30); Chloride 115 mmol/L (98-107); Glucose 106 mg/dL (74-99); Non-African American GFR(CKD) >90 (>60 ml/min/1.73 sqM); Potassium 3.9 mmol/L (3.5-5.1); Sodium 137 mmol/L (137-145)
[2020-03-18 06:56] VITALS: RESP 22
[2020-03-18 08:06] VITALS: BP 103/49; PULSE 81; TEMP 98
[2020-03-18] MEDS: SODIUM BICARBONATE TAB 650 MG TAB PO SCH (08:32)
[2020-03-18] MEDS: NICOTINE 21MG/24HR PATCH TRANSDERM SCH (08:32)
[2020-03-18] MEDS: ACETAZOLAMIDE 500 MG PO SCH (08:33)
[2020-03-18] MEDS: ALPRAZolam 0.25 MG TAB PO PRN (09:08)
--- NOTE | 2020-03-18 09:09 | P.PN ---
Subjective Patient is seen in follow-up for non-anion gap metabolic acidosis. Bicarb level 13 today. She is maintained on Diamox for intracranial hypertension. No vomiting or diarrhea. No shortness of breath. Denies any history of autoimmune disease. Vital signs are stable. General: The patient appeared well nourished and normally developed. HEENT: Head exam is unremarkable. Neck is without jugular venous distension. LUNGS: Lungs are clear to auscultation and percussion. Breath sounds decreased. HEART: Rate and Rhythm are regular. First and second heart sounds normal. No murmurs, rubs or gallops. ABDOMEN: Non-tender and non-distended. EXTREMITITES: No clubbing, cyanosis, or edema. Objective - Vital Signs Vital signs: Vital Signs Temp 98.0 F 03/18/20 08:01 Pulse 81 03/18/20 08:01 Resp 22 03/18/20 08:01 BP 103/49 03/18/20 08:01 Pulse Ox 98 03/18/20 08:01 Intake & Output 03/17/20 03/18/20 03/18/20 18:59 06:59 18:59 Intake Total 600 600 Output Total 1600 Balance 600 -1000 Intake: Oral 600 600 Output: Urine 1600 Other: # Voids 2 2 - Labs CBC & Chem 7: 03/18/20 05:27 03/18/20 05:27 Labs: Abnormal Lab Results - Last 24 Hours (Table) 03/17/20 03/17/20 03/18/20 Range/Units 13:36 16:12 05:27 WBC 11.4 H (3.8-10.6) k/uL ABG pH 7.31 L (7.35-7.45) ABG pCO2 27 L (35-45) mmHg ABG HCO3 13 L (21-25) mmol/L ABG Total CO2 14 L (19-24) mmol/L ABG O2 Saturation 97.4 H (94-97) % Chloride (98-107) mmol/L Carbon Dioxide (22-30) mmol/L Glucose (74-99) mg/dL Plasma Lactic Acid Bogdan <0.5 L (0.7-2.0) mmol/L 03/18/20 Range/Units 05:27 WBC (3.8-10.6) k/uL ABG pH (7.35-7.45) ABG pCO2 (35-45) mmHg ABG HCO3 (21-25) mmol/L ABG Total CO2 (19-24) mmol/L ABG O2 Saturation (94-97) % Chloride 115 H (98-107) mmol/L Carbon Dioxide 13 L (22-30) mmol/L Glucose 106 H (74-99) mg/dL Plasma Lactic Acid Bogdan (0.7-2.0) mmol/L Microbiology - Last 24 Hours (Table) 03/16/20 00:00 CSF Gram Stain - Preliminary Cerebral Spinal Fluid CSF Culture - Preliminary 03/15/20 14:05 Blood Culture - Preliminary Blood No Growth after 48 hours Assessment and Plan Plan: Assessment: 1. Non-anion gap metabolic acidosis secondary to Diamox. No diarrhea. No history of diabetes. Denies regular use of salicylates. No history of autoimmune disease. Patient's blood gas was reviewed and was suggestive of compensated metabolic acidosis. 2. Intracranial hypertension. Plan: Increase oral sodium bicarbonate to 1300 mg twice daily. Discussed with the patient that the worsening acidosis kidney to increased respirations as well as fatigue and prone her to fractures. She understands. Patient states he Diamox has been helping with the tinnitis but is willing to discuss alternative therapy with neurology. Repeat electrolytes in the morning.
[2020-03-18] MEDS ORDERED: ACETAMINOPHEN TAB 325 MG TAB PO PRN ×3 (10:14→10:37)
--- NOTE | 2020-03-18 13:58 | PN ---
PROGRESS NOTE DATE OF SERVICE: 03/18/2020 REASON FOR FOLLOWUP: 1. Positive CSF, HSV, DNA by PCR. 2. Possible bronchitis. INTERVAL HISTORY: The patient is currently afebrile, she is breathing comfortably. The patient's cough slightly improved as well as sore throat. No chest pain, shortness of breath or cough. No abdominal pain, no diarrhea. PHYSICAL EXAMINATION: Blood pressure 130/49 with a pulse of 81, temperature 98. She is 98% on room air. General description is a middle-aged female lying in bed in no distress. RESPIRATORY SYSTEM: Unlabored breathing, clear to auscultation anteriorly. HEART: S1, S2. Regular rate and rhythm. ABDOMEN: Soft, no tenderness, LABS: Hemoglobin is 12, white count 11.4, creatinine 0.57. Repeat CSF, HSV, DNA by PCR is negative. DIAGNOSTIC IMPRESSION AND PLAN: 1. Patient with a positive recent HSV, DNA by PCR, more likely lab error. No need for further acyclovir, it has already been discontinued. 2. The patient with possible bronchitis with significant cough, no improvement with Rocephin and a short course of oral Ceftin. Condition discussed with the admitting physician. MMODL / IJN: [id number] /
--- NOTE | 2020-03-18 17:23 | P.DS ---
Providers Date of admission: 03/15/20 14:52 Expected date of discharge: 03/18/20 Attending physician: Laury Cardona Consults: 03/15/20 15:01 Consult Physician Stat Consulting Provider: Kirill Bustillo Consult Reason/Comments: viral meningitis Do you want consulting provider notified?: Yes Consult Physician Stat Consulting Provider: Jian Vela Consult Reason/Comments: viral meningitis Do you want consulting provider notified?: Yes 03/15/20 15:26 Consult to Anesthesia Stat Consulting Provider: Anesthesia,Services Consult Reason/Comments: LP/CSF 03/17/20 13:26 Consult Physician Urgent Consulting Provider: Marnie Edwards Consult Reason/Comments: co2 level Do you want consulting provider notified?: Yes Primary care physician: Ken Freire Hospital Course: Final diagnosis Headache and weakness, ruled out HSV 1 encephalitis pseudotumor cerebri, possibly Metabolic acidosis, acute, possibly from Diamox History of papilledema Increased WBC Insessant intractable cough history of sinusitis History of premature History of anxiety Continued ongoing nicotine dependance History of THC Urinary tract infection Discharge disposition Patient is being discharged in a stable condition with guarded prognosis to home. Patient will follow-up with Dr. Freire upon discharge. Patient also instructed to follow up with Dr. Cardona and nephrology Dr. Blandon in the outpatient setting. Patient will continue on a short course of oral antibiotics in the form of Ceftin 500mg BID for 3 days. Patient instructed to continue with Diamox and sodium bicarb tablets until follow up this week. Total time taken is 35 minutes. History of present illness This is a 30-year-old female who was recently admitted with headache and weakness and was being closely monitored. Patient had outpatient testing with Dr. Cardona and initial antibody testing and CSF was positive. Patient underwent repeat LP which was negative for HSV 1 and serum testing was negative. Patient has been seeing Neuro and opthalmology for ongoing papilledema and was started on Diamox. Patient was started on IV acyclovir and started having a possible reaction to it and was discontinued. Patient was given benadryl with improvement. Patient continues to have a dry incessant cough that is somewhat relieved with robitussin and cepacol. Patient's urine culture finalized showing normal dina and will continue a short course of oral Ceftin 500mg BID for 3 days. Script provided for repeat labs in 2-3 days and instructed to follow up with nephrology in the outpatient setting. Currently no reports of chest pain, palpitations, or shortness. Patient is afebrile. No reports of nausea or vomiting and patient is tolerating diet. On exam vital signs are stable. Temp is 98.0F, pulse is 81, respirations are 18, blood pressure 103/49, oxygen saturation is 98% on room air. Cardio S1, S2 are present. Respiratory shows clear to auscultation. Abdomen is soft and nontender. Nervous system shows no focal deficits. Please refer to medication reconciliation sheet for a list of medications. Patient Condition at Discharge: Good Plan - Discharge Summary Discharge Rx Participant: No New Discharge Prescriptions: New diphenhydrAMINE [Benadryl] 25 mg PO QID PRN #30 cap PRN Reason: Allergy Symptoms Cefuroxime Axetil [Ceftin] 500 mg PO BID 3 Days #6 tab Benzocaine/Menthol Lozeng [Cepacol lozenge] 1 each MUCOUS MEM Q4HR PRN #12 lozenge PRN Reason: Sore Throat guaiFENesin SYRUP 100MG/5ML [Robitussin] 200 mg PO Q6H PRN #120 ml PRN Reason: Cough Sodium Bicarbonate Tab 1,300 mg PO BID #30 tab Continue acetaZOLAMIDE [acetaZOLAMIDE ER] 500 mg PO BID Phenylephrine/Dm/Acetaminop/GG [Vicks Dayquil Severe Cold-Flu] 15 ml PO DAILY PRN PRN Reason: cold and flu symptoms ALPRAZolam [Xanax] 0.25 mg PO DAILY PRN #10 tab PRN Reason: Anxiety Discharge Medication List Phenylephrine/Dm/Acetaminop/GG [Vicks Dayquil Severe Cold-Flu] 15 ml PO DAILY PRN 03/15/20 [History] acetaZOLAMIDE [acetaZOLAMIDE ER] 500 mg PO BID 03/15/20 [History] ALPRAZolam [Xanax] 0.25 mg PO DAILY PRN #10 tab 03/18/20 [Rx] Benzocaine/Menthol Lozeng [Cepacol lozenge] 1 each MUCOUS MEM Q4HR PRN #12 lozenge 03/18/20 [Rx] Cefuroxime Axetil [Ceftin] 500 mg PO BID 3 Days #6 tab 03/18/20 [Rx] Sodium Bicarbonate Tab 1,300 mg PO BID #30 tab 03/18/20 [Rx] diphenhydrAMINE [Benadryl] 25 mg PO QID PRN #30 cap 03/18/20 [Rx] guaiFENesin SYRUP 100MG/5ML [Robitussin] 200 mg PO Q6H PRN #120 ml 03/18/20 [Rx] Follow up Appointment(s)/Referral(s): Marnie Edwards MD [STAFF PHYSICIAN] - 03/26/20 10:00 am (TELEHEALTH VISIT VIA PHONE CALL) Ken Freire DO [Primary Care Provider] - 1-2 days Dago Cardona MD [Medical Doctor] - 1 Week Ambulatory/Diagnostic Orders: Basic Metabolic Panel [LAB.AMB] Time Frame: 2 Days, Location: None Selected Complete Blood Count w/diff [LAB.AMB] Time Frame: 2 Days, Location: None Selected Activity/Diet/Wound Care/Special Instructions: Activity Limited until follow-up. DIET TOLERATED. FLUIDS ARE ALWAYS ENCOURAGED. Follow-up with primary care provider upon discharge. TRIED TO MAKE AN APPOINTMENT OFFICE NEEDS YOU TO CALL TO MAKE A TELEHEALTH APPOINTMENT. Continue antibiotics until finished START FIRST DOSE TOMORROW MORNING AND FOLLOW DIRECTIONS FOR DOSING UNTIL COMPLETED. Repeat labs in 2-3 days AT A FACILITY OF YOUR CHOOSING. CALL PHYSICIAN OR RETURN TO ER WITH ANY QUESTIONS COMMENTS CONCERNS WORSENING RETURNING SYMPTOMS, FEVER 101.1 OR HIGHER, SOB, CHILLS. Discharge Disposition: HOME SELF-CARE
--- NOTE | 2020-03-18 18:19 | PN ---
PROGRESS NOTE DATE OF SERVICE: 03/18/2020. REFERRING PHYSICIAN: Dr. Phillips. I had the pleasure of evaluating Zarina Whiteside who is a 30-year-old female who presented to [facility] on 03/15/2020 for evaluation of abnormal spinal fluid results with a positive HSV 1 PCR. The patient states that she has had persistent right ear tinnitus since 2015 and in November 2019, had a routine eye exam, which revealed bilateral optic nerve swelling. The patient followed up with an varitypist who confirmed this finding, was seen by Dr. Cardona of Neurology and had a lumbar puncture completed on 03/12/2020 demonstrating opening pressure of 33 cm of water. Diamox was initiated and spinal fluid came back positive for HSV 1 PCR, although in that same sample, CSF WBC was 0, and protein was normal at 44. The patient has not had significant headaches, but prior to initiation of Diamox, the patient would see occasional colored shapes. With starting the Diamox, the right ear symptoms have completely resolved. Since starting the Diamox, the patient has felt weak, sweaty, and was found during this hospitalization to have a metabolic acidosis, nephrology was consulted, who felt this was secondary to Diamox. They started the patient on bicarb supplements. Prior to this hospitalization, the patient had outpatient MRI of the brain and MRA of the head, which were reportedly unrevealing. During this hospitalization, Infectious Disease was involved and followup lumbar puncture was completed, which also demonstrated no elevation in the CSF WBC count, normal protein and HSV 1 PCR came back negative. The patient was given a few doses of acyclovir empirically, although apparently developed a localized rash at the infusion site and the medication was held. ALLERGIES: ACYCLOVIR. CURRENT MEDICATIONS: Tylenol, Diamox 5 mg b.i.d., Xanax, Cepacol, Benadryl, Robitussin, nicotine patch, and sodium bicarb. PHYSICAL EXAM: Upon my arrival to the patient's room, she was sitting up in bed, receptive to the examiner. Affect is normal. She is an accurate historian and appears of stated age. She is intermittently coughing. She states recent Covid testing was negative. VITAL SIGNS: Blood pressure is 103/49 with a pulse of 81, respiratory rate 18, temperature 98.0. The patient has been afebrile through the course of this hospitalization. SKIN AND EXTREMITIES: The patient has a rash in the right antecubital fossa. NECK: No tenderness or signs of trauma. Neck supple. No meningeal signs. Nontender without bruits. HEART: Regular rate and rhythm. Higher cortical function. Mental status patient was alert, oriented to time, place, and person. Speech was fluent and she follows commands readily. There was no aphasia or dysarthria. Cranial nerves 2 through 12 are intact. Motor examination no pronator drift. Normal bulk and tone were noted in all major muscle groups with no involuntary movements noted. Strength is 5 out of 5 throughout. Sensory intact to pin prick and light touch in all extremities. Reflexes: Right side listed first: biceps 2,2; brachioradialis 2, 2; triceps 2, 2; patella 2++, ankle 2,2. Plantar response flexor bilaterally. Landa's is absent. Coordination: Rhtgkq-[id number], shpe-vp-ewoc movements are intact. Rapid alternating movements are symmetric with finger tapping. DIAGNOSTIC TESTING: The patient's lab work demonstrates a white blood count of 11.4 with hemoglobin of 12.7, platelet count 373. Sodium 137, potassium 3.9, bicarb 13, BUN 9 with a creatinine of 0.57, ALT 15, AST 18. Blood gas during this hospitalization revealed a pH of 7.31, pCO2 27, PO2 97, bicarb of 13. CSF results include CSF RBC 1, CSF WBC 2, CSF glucose 56, CSF protein 43. HSV PCR 1 and 2 were both negative. IMPRESSION: 1. Idiopathic intracranial hypertension with outpatient opening pressure of 33 cm of water. 2. HSV 1 PCR positive on CSF sample from March 12, 2020 with 0 WBCs and normal protein, likely representing a false-positive result. Followup CSF sample was also unrevealing with negative HSV 1 PCR. 3. Right-sided tinnitus since 2016, which has resolved with initiation of Diamox. 4. Metabolic acidosis secondary to Diamox per Nephrology. 5. Cough, deferred to your expertise. RECOMMENDATION: 1. I discussed my impression and plan with the patient and she expressed understanding. Case was also discussed with nursing staff and Dr. Phillips. 2. We will continue Diamox at the current dose for now with bicarb supplements per Nephrology. If the metabolic acidosis persists, the patient could be transitioned to Lasix. 3. The patient will follow up with Dr. Cardona later this week. 4. Please feel free to contact me if there are further questions from a neurologic standpoint. I want to thank you for this consultation. LORETA / KUNAL: [id number] / CHECO
[2020-03-18] MEDS ORDERED: SODIUM BICARBONATE TAB 650 MG TAB PO SCH (21:00)
== END 2020-03-18 16:00 | disposition home or self-care (01) | DRG 103 ==
LOC: EC 11:38 → 6PED 14:52
PROVIDERS: ADMIT Internal Medicine; ATTEND Internal Medicine
PROC: 009U3ZX Drainage of Spinal Canal, Percutaneous Approach, Diagnostic (ICD-10-PCS; principal; 2020-03-16)
DX: R51 Headache (principal); N39.0 Urinary tract infection, site not specified; E87.2 Acidosis; Z11.59 Encounter for screening for other viral diseases; G93.2 Benign intracranial hypertension; F41.9 Anxiety disorder, unspecified; F17.200 Nicotine dependence, unspecified, uncomplicated; D72.829 Elevated white blood cell count, unspecified; H93.11 Tinnitus, right ear; R21 Rash and other nonspecific skin eruption; R83.9 Unspecified abnormal finding in cerebrospinal fluid; R05 Cough; R60.0 Localized edema; R53.1 Weakness; T37.5X5A Adverse effect of antiviral drugs, initial encounter; T50.2X5A Adverse effect of carbonic-anhydrase inhibitors, benzothiadiazides and other diuretics, initial encounter; Z88.8 Allergy status to other drugs, medicaments and biological substances
CPT/HCPCS: 36415; 36600; 71046; 80048; 80053; 81001; 81025; 82805; 82945; 83605; 84157; 85025; 86140; 86695; 86696; 87040; 87070; 87086; 87205; 87529; 89050; 96365; 99285

== ENCOUNTER → 2020-03-22 | Outpatient (CLI) | payer OTHER ==
[2020-03-22 13:00] LABS: Basophils % (A) 0 %; Eosinophils # (A) 0.3 k/uL (0-0.7); Eosinophils % (A) 1 %; HCT 39.4 % (34.0-46.0); Lymphocytes # (A) 2.3 k/uL (1.0-4.8); Lymphocytes % (A) 11 %; MCHC 33.1 g/dL (31.0-37.0); MCV 90.6 fL (80.0-100.0); Monocytes # (A) 0.7 k/uL (0-1.0); Monocytes % (A) 4 %; Neutrophils # (A) 16.7 k/uL (1.3-7.7); Neutrophils % (A) 83 %; Platelet Count 528 k/uL (150-450); RBC 4.35 m/uL (3.80-5.40); RDW 12.9 % (11.5-15.5); WBC 20.1 k/uL (3.8-10.6)
[2020-03-22 18:46] LABS: African American GFR (CKD) 135.7 (60.0-200.0); Anion Gap 11.2 mmol/L (4.00-12.00); BUN/Creat Ratio 14.29 Ratio (12.00-20.00); Calcium 9.3 mg/dL (8.7-10.3); Carbon Dioxide 18.8 mmol/L (21.6-31.8); Non-African American GFR(CKD) 117.1 (60.0-200.0); Potassium 3.5 mmol/L (3.5-5.5)
== END | disposition home or self-care (01) ==
LOC: LABWHC1 12:23
PROVIDERS: ATTEND Registered Nurse
DX: E87.8 Other disorders of electrolyte and fluid balance, not elsewhere classified (principal); D72.829 Elevated white blood cell count, unspecified
CPT/HCPCS: 36415; 80048; 85025

== ENCOUNTER 2020-03-26 02:43 | Emergency (ER) | payer OTHER ==
[2020-03-26] MEDS ORDERED: SODIUM CHLORIDE 0.9% 1,000 ML IV STA (03:09)
[2020-03-26] MEDS ORDERED: MORPHINE SULFATE 4 MG/ML SYRINGE IV STA (03:09)
[2020-03-26] MEDS ORDERED: KETOROLAC 30 MG/ML 1 ML VIAL IVP STA (03:09)
--- NOTE | 2020-03-26 03:11 | ED ---
Abdominal Pain HPI - General Chief Complaint: Back Pain/Injury Stated Complaint: Kidney issues Time Seen by Provider: 03/26/20 02:43 Source: patient, RN notes reviewed, old records reviewed Mode of arrival: ambulatory Limitations: no limitations - History of Present Illness Initial Comments: This is a 30-year-old female DF for evaluation patient with us today for evaluation regards to abdominal pain and right-sided flank pain severe abdominal pain MD Complaint: abdominal pain, flank pain (R) -: days(s) Location: RLQ, suprapubic Radiation: R flank Migration to: suprapubic Severity: moderate Severity scale (1-10): 7 Quality: aching Consistency: constant Improves With: nothing Worsens With: nothing Associated Symptoms: nausea Treatments Prior to Arrival: NSAIDs - Related Data Home Medications Medication Instructions Recorded Confirmed Phenylephrine/Dm/Acetaminop/GG 15 ml PO DAILY PRN 03/15/20 03/15/20 [Vicks Dayquil Severe Cold-Flu] acetaZOLAMIDE [acetaZOLAMIDE ER] 500 mg PO BID 03/15/20 03/15/20 Previous Rx's Medication Instructions Recorded ALPRAZolam [Xanax] 0.25 mg PO DAILY PRN #10 tab 03/18/20 Benzocaine/Menthol Lozeng [Cepacol 1 each MUCOUS MEM Q4HR PRN #12 03/18/20 lozenge] lozenge Cefuroxime Axetil [Ceftin] 500 mg PO BID 3 Days #6 tab 03/18/20 Sodium Bicarbonate Tab 1,300 mg PO BID #30 tab 03/18/20 diphenhydrAMINE [Benadryl] 25 mg PO QID PRN #30 cap 03/18/20 guaiFENesin SYRUP 100MG/5ML 200 mg PO Q6H PRN #120 ml 03/18/20 [Robitussin] Allergies Allergy/AdvReac Type Severity Reaction Status Date / Time acyclovir Allergy Rash/Hives Verified 03/26/20 02:53 Review of Systems ROS Statement: Those systems with pertinent positive or pertinent negative responses have been documented in the HPI. ROS Other: All systems not noted in ROS Statement are negative. Past Medical History Additional Past Medical History / Comment(s): high spinal fluid. SINUSITIS. BORN PREMATURE 3 MONTHS History of Any Multi-Drug Resistant Organisms: None Reported Past Surgical History: No Surgical Hx Reported Additional Past Surgical History / Comment(s): LUMBAR PUNCTURE TEUS Past Anesthesia/Blood Transfusion Reactions: No Reported Reaction Past Psychological History: Anxiety Smoking Status: Current every day smoker Past Alcohol Use History: Occasional Past Drug Use History: Marijuana - Past Family History Mother History Unknown: Yes General Exam Limitations: no limitations General appearance: alert, in no apparent distress Head exam: Present: atraumatic, normocephalic, normal inspection Eye exam: Present: normal appearance, PERRL, EOMI. Absent: scleral icterus, conjunctival injection, periorbital swelling ENT exam: Present: normal exam, mucous membranes moist Neck exam: Present: normal inspection. Absent: tenderness, meningismus, lymphadenopathy Respiratory exam: Present: normal lung sounds bilaterally. Absent: respiratory distress, wheezes, rales, rhonchi, stridor Cardiovascular Exam: Present: regular rate, normal rhythm, normal heart sounds. Absent: systolic murmur, diastolic murmur, rubs, gallop, clicks GI/Abdominal exam: Present: soft, normal bowel sounds. Absent: distended, tenderness, guarding, rebound, rigid Extremities exam: Present: normal inspection, full ROM, normal capillary refill. Absent: tenderness, pedal edema, joint swelling, calf tenderness Back exam: Present: normal inspection Neurological exam: Present: alert, oriented X3, CN II-XII intact Psychiatric exam: Present: normal affect, normal mood Skin exam: Present: warm, dry, intact, normal color. Absent: rash Course Vital Signs 03/26/20 03/26/20 02:51 05:33 Temperature 97.9 F 97.7 F Pulse Rate 73 67 Respiratory 18 17 Rate Blood Pressure 117/98 112/73 O2 Sat by Pulse 98 96 Oximetry - Reevaluation(s) Reevaluation #1: Medical record is reviewed Patient is without pain or complaint Medical Decision Making - Medical Decision Making 21 female believes she may have active kidney infection no evidence of that here in the emergency department will take cultures patient can be discharged - Lab Data Result diagrams: 03/26/20 03:37 03/26/20 03:37 Lab Results 03/26/20 03/26/20 03/26/20 Range/Units 03:37 03:37 03:37 WBC 16.5 H (3.8-10.6) k/uL RBC 4.28 (3.80-5.40) m/uL Hgb 12.4 (11.4-16.0) gm/dL Hct 38.0 (34.0-46.0) % MCV 88.6 (80.0-100.0) fL MCH 28.8 (25.0-35.0) pg MCHC 32.5 (31.0-37.0) g/dL RDW 12.8 (11.5-15.5) % Plt Count 578 H (150-450) k/uL Neutrophils % 78 % Lymphocytes % 14 % Monocytes % 5 % Eosinophils % 3 % Basophils % 0 % Neutrophils # 12.8 H (1.3-7.7) k/uL Lymphocytes # 2.3 (1.0-4.8) k/uL Monocytes # 0.7 (0-1.0) k/uL Eosinophils # 0.4 (0-0.7) k/uL Basophils # 0.0 (0-0.2) k/uL Sodium 135 L (137-145) mmol/L Potassium 4.2 (3.5-5.1) mmol/L Chloride 104 (98-107) mmol/L Carbon Dioxide 23 (22-30) mmol/L Anion Gap 8 mmol/L BUN 9 (7-17) mg/dL Creatinine 0.48 L (0.52-1.04) mg/dL Est GFR (CKD-EPI)AfAm >90 (>60 ml/min/1.73 sqM) Est GFR (CKD-EPI)NonAf >90 (>60 ml/min/1.73 sqM) Glucose 125 H (74-99) mg/dL Calcium 9.5 (8.4-10.2) mg/dL Total Bilirubin 0.5 (0.2-1.3) mg/dL AST 19 (14-36) U/L ALT 10 (4-34) U/L Alkaline Phosphatase 85 (38-126) U/L Creatine Kinase 135 (30-135) U/L Total Protein 6.9 (6.3-8.2) g/dL Albumin 4.1 (3.5-5.0) g/dL Amylase 40 (30-110) U/L Lipase 18 L (23-300) U/L Urine Color Yellow Urine Appearance Cloudy H (Clear) Urine pH 6.0 (5.0-8.0) Ur Specific [place] 1.024 (1.001-1.035) Urine Protein Trace H (Negative) Urine Glucose (UA) Negative (Negative) Urine Ketones Negative (Negative) Urine Blood Negative (Negative) Urine Nitrite Negative (Negative) Urine Bilirubin Negative (Negative) Urine Urobilinogen <2.0 (<2.0) mg/dL Ur Leukocyte Esterase Trace H (Negative) Urine RBC 5 (0-5) /hpf Urine WBC 5 (0-5) /hpf Ur Squamous Epith Cells 16 H (0-4) /hpf Urine Bacteria Rare H (None) /hpf Urine Mucus Many H (None) /hpf Urine HCG, Qual (Not Detectd) 03/26/20 Range/Units 03:37 WBC (3.8-10.6) k/uL RBC (3.80-5.40) m/uL Hgb (11.4-16.0) gm/dL Hct (34.0-46.0) % MCV (80.0-100.0) fL MCH (25.0-35.0) pg MCHC (31.0-37.0) g/dL RDW (11.5-15.5) % Plt Count (150-450) k/uL Neutrophils % % Lymphocytes % % Monocytes % % Eosinophils % % Basophils % % Neutrophils # (1.3-7.7) k/uL Lymphocytes # (1.0-4.8) k/uL Monocytes # (0-1.0) k/uL Eosinophils # (0-0.7) k/uL Basophils # (0-0.2) k/uL Sodium (137-145) mmol/L Potassium (3.5-5.1) mmol/L Chloride (98-107) mmol/L Carbon Dioxide (22-30) mmol/L Anion Gap mmol/L BUN (7-17) mg/dL Creatinine (0.52-1.04) mg/dL Est GFR (CKD-EPI)AfAm (>60 ml/min/1.73 sqM) Est GFR (CKD-EPI)NonAf (>60 ml/min/1.73 sqM) Glucose (74-99) mg/dL Calcium (8.4-10.2) mg/dL Total Bilirubin (0.2-1.3) mg/dL AST (14-36) U/L ALT (4-34) U/L Alkaline Phosphatase (38-126) U/L Creatine Kinase (30-135) U/L Total Protein (6.3-8.2) g/dL Albumin (3.5-5.0) g/dL Amylase (30-110) U/L Lipase (23-300) U/L Urine Color Urine Appearance (Clear) Urine pH (5.0-8.0) Ur Specific [place] (1.001-1.035) Urine Protein (Negative) Urine Glucose (UA) (Negative) Urine Ketones (Negative) Urine Blood (Negative) Urine Nitrite (Negative) Urine Bilirubin (Negative) Urine Urobilinogen (<2.0) mg/dL Ur Leukocyte Esterase (Negative) Urine RBC (0-5) /hpf Urine WBC (0-5) /hpf Ur Squamous Epith Cells (0-4) /hpf Urine Bacteria (None) /hpf Urine Mucus (None) /hpf Urine HCG, Qual Not Detected (Not Detectd) - Radiology Data Radiology results: report reviewed (CT pelvis negative for acute disease), image reviewed Disposition Clinical Impression: Abdominal pain Disposition: HOME SELF-CARE Condition: Good Instructions (If sedation given, give patient instructions): Abdominal Pain (ED) Is patient prescribed a controlled substance at d/c from ED?: No Referrals: Ken Freire DO [Primary Care Provider] - 1-2 days
[2020-03-26 04:00] LABS: ALT 10 U/L (4-34); AST 19 U/L (14-36); African American GFR (CKD) >90 (>60 ml/min/1.73 sqM); Albumin 4.1 g/dL (3.5-5.0); Alkaline Phosphatase 85 U/L (38-126); Amylase 40 U/L (30-110); Anion Gap 8 mmol/L; Blood Urea Nitrogen 9 mg/dL (7-17); Calcium 9.5 mg/dL (8.4-10.2); Carbon Dioxide 23 mmol/L (22-30); Chloride 104 mmol/L (98-107); Creatine Kinase 135 U/L (30-135); Glucose 125 mg/dL (74-99); Non-African American GFR(CKD) >90 (>60 ml/min/1.73 sqM); Potassium 4.2 mmol/L (3.5-5.1); Sodium 135 mmol/L (137-145); Total Bilirubin 0.5 mg/dL (0.2-1.3); Total Protein 6.9 g/dL (6.3-8.2)
[2020-03-26 04:07] LABS: Basophils % (A) 0 %; Eosinophils # (A) 0.4 k/uL (0-0.7); Eosinophils % (A) 3 %; HGB 12.4 gm/dL (11.4-16.0); Lymphocytes # (A) 2.3 k/uL (1.0-4.8); Lymphocytes % (A) 14 %; MCH 28.8 pg (25.0-35.0); MCHC 32.5 g/dL (31.0-37.0); MCV 88.6 fL (80.0-100.0); Mean Platelet Volume 7.4; Monocytes # (A) 0.7 k/uL (0-1.0); Monocytes % (A) 5 %; Neutrophils # (A) 12.8 k/uL (1.3-7.7); Neutrophils % (A) 78 %; Platelet Count 578 k/uL (150-450); RBC 4.28 m/uL (3.80-5.40); RDW 12.8 % (11.5-15.5); WBC 16.5 k/uL (3.8-10.6)
[2020-03-26 04:16] LABS: Appearance,Urine Cloudy (Clear); Bacteria,Urine Rare /hpf; Bilirubin,Urine Negative (Negative); Blood,Urine Negative (Negative); Color,Urine Yellow; Glucose,Urine (UA) Negative (Negative); Ketones,Urine Negative (Negative); Leukocyte Esterase,Urine Trace (Negative); Mucus,Urine Many /hpf; Nitrite,Urine Negative (Negative); Protein,Urine Trace (Negative); RBC,Urine 5 /hpf (0-5); Specific Gravity,Urine 1.024 (1.001-1.035); Squamous Epithelial Cell,Urine 16 /hpf (0-4); Urobilinogen,Urine <2.0 mg/dL (<2.0); WBC,Urine 5 /hpf (0-5)
--- NOTE | 2020-03-26 04:30 | CT ---
EXAMINATION TYPE: CT abdomen pelvis wo con DATE OF EXAM: 03/26/2020 COMPARISON: None HISTORY: poss kidney infection CT DLP: 516.20 mGycm Automated exposure control for dose reduction was used. Lung bases are clear. There is no pleural effusion. Heart size is normal. There is no pericardial eff usion. Liver spleen pancreas gallbladder appear normal. Bile ducts are not dilated. Stomach is intact. There is no adrenal mass. Kidneys have normal size and contour. There is a 2 mm calculus in the centr al right kidney. There is no hydronephrosis. Ureters are not dilated. There is no retroperitoneal siobhan nopathy. Bladder distends smoothly. Uterus is anteverted. There is no inguinal hernia. There is no mesenteric edema. There is no ascites or free air. There is no sign of a bowel obstructio n. Appendix appears normal. Lumbar vertebra have normal alignment. Posterior elements are intact. Disc spaces are normal. Bony pe lvis is intact. IMPRESSION: Nonobstructing small right renal calculus. No evidence of a renal mass. Normal appendix.
[2020-03-26 05:36] VITALS: BP 112/73; PULSE 67; RESP 17; TEMP 97.7
== END 2020-03-26 05:40 | disposition home or self-care (01) ==
LOC: EC 02:43
DX: R10.31 Right lower quadrant pain (principal); R11.0 Nausea; F17.200 Nicotine dependence, unspecified, uncomplicated; Z88.8 Allergy status to other drugs, medicaments and biological substances
CPT/HCPCS: 36415; 80053; 82150; 82550; 83690; 85025; 81001; 81025; 74176; 99285; 96374; 96375; 96361 ×2; J2270; J1885

== ENCOUNTER → 2020-03-29 | Outpatient (CLI) | payer OTHER ==
[2020-03-29 13:06] LABS: Amorphous Sediment,Urine Rare /hpf; Appearance,Urine Cloudy (Clear); Bilirubin,Urine Negative (Negative); Blood,Urine Negative (Negative); Color,Urine Yellow; Glucose,Urine (UA) Negative (Negative); Ketones,Urine Negative (Negative); Leukocyte Esterase,Urine Trace (Negative); Mucus,Urine Rare /hpf; Nitrite,Urine Negative (Negative); Protein,Urine Negative (Negative); RBC,Urine 1 /hpf (0-5); Specific Gravity,Urine 1.019 (1.001-1.035); Squamous Epithelial Cell,Urine 7 /hpf (0-4); Urobilinogen,Urine <2.0 mg/dL (<2.0); WBC,Urine 3 /hpf (0-5)
[2020-03-29 18:33] LABS: African American GFR (CKD) 142.8 (60.0-200.0); Anion Gap 12.3 mmol/L (4.00-12.00); Calcium 9.7 mg/dL (8.7-10.3); Carbon Dioxide 24.7 mmol/L (21.6-31.8); Non-African American GFR(CKD) 123.2 (60.0-200.0); Potassium 4.9 mmol/L (3.5-5.5)
== END | disposition home or self-care (01) ==
LOC: LABWHC1 11:04
PROVIDERS: ATTEND Internal Medicine
DX: E78.2 Mixed hyperlipidemia (principal)
CPT/HCPCS: 36415; 80048; 81001; 87086

== ENCOUNTER → 2020-07-09 | Outpatient (CLI) | payer OTHER ==
[2020-07-09 21:23] LABS: African American GFR (CKD) 142.8 (60.0-200.0); Albumin 4.6 g/dL (3.80-4.90); Albumin/Globulin Ratio 2.56 (1.60-3.17); Anion Gap 8.9 mmol/L (4.00-12.00); Calcium 9.3 mg/dL (8.7-10.3); Carbon Dioxide 22.1 mmol/L (21.6-31.8); Globulin 1.8 g/dL (1.6-3.3); Non-African American GFR(CKD) 123.2 (60.0-200.0); Potassium 4.8 mmol/L (3.5-5.5); Total Bilirubin 0.5 mg/dL (0.3-1.2); Total Protein 6.4 g/dL (6.2-8.2)
== END | disposition home or self-care (01) ==
LOC: LABWHC1 10:03
PROVIDERS: ATTEND Nurse Practitioner Family
DX: Z51.81 Encounter for therapeutic drug level monitoring (principal); E87.1 Hypo-osmolality and hyponatremia; Z79.899 Other long term (current) drug therapy
CPT/HCPCS: 36415; 80053